=== PATIENT | female | born 1990 | race Native Hawaiian/Other Pacific Islander ===

== ENCOUNTER 2018-02-27 08:47 | Outpatient (CLI) | payer OTHER | END 2018-02-27 22:04 | disposition home or self-care (01) | LOC: LABW 08:47 | DX: R10.13 Epigastric pain (principal) | CPT/HCPCS: 36415; 82150; 83690; 86677 ==

== ENCOUNTER 2018-03-06 11:49 | Outpatient (CLI) | payer OTHER | END 2018-03-06 23:32 | disposition home or self-care (01) | LOC: US 11:49 | DX: R10.13 Epigastric pain (principal) ==

== ENCOUNTER 2018-04-30 10:36 | Observation (INO) | payer OTHER ==
[~2018-04-30] VITALS: Ht 167.6 cm; Wt 94.9 kg
[2018-04-30 10:42] VITALS: BP 125/92; TEMP 99.7
[2018-04-30] MEDS ORDERED: RANI150T78 PO (11:24)
[2018-04-30 12:06] LABS: PLATELET COUNT 107 K/uL (152-353)
[2018-04-30 12:14] LABS: POTASSIUM 3.5 mmol/L (3.6-5.2); SODIUM 139 mmol/L (136-145)
[2018-04-30 12:29] LABS: PARTIAL THROMBOPLASTIN TIME 18.3 SECONDS (24.5-33.6)
[2018-04-30 17:31] VITALS: BP 126/73; TEMP 97.8; Ht 167.6 cm; Wt 94.9 kg
[2018-04-30 20:00] VITALS: BP 139/83; TEMP 98.3
[2018-05-01 00:49] VITALS: BP 101/54; TEMP 98.7
[2018-05-01 04:00] VITALS: BP 122/69; TEMP 98.2
[2018-05-01 08:00] VITALS: BP 117/67; TEMP 97.8
== END 2018-05-01 09:15 | disposition home or self-care (01) ==
LOC: ED 10:36 → MED/SURG 13:07
PROVIDERS: ADMIT Internal Medicine
DX: R07.89 Other chest pain (principal); K21.9 Gastro-esophageal reflux disease without esophagitis; E03.8 Other specified hypothyroidism; E66.8 Other obesity; E87.6 Hypokalemia; R10.13 Epigastric pain
CPT/HCPCS: 36415; 80053; 82550; 84484; 85027; 85379; 85610; 85730; 93005; 96372; 96374; 99220; 99283; G0378; J1650; J2405; Q9963

== ENCOUNTER 2018-05-16 07:40 | Emergency (ER) | payer OTHER ==
[~2018-05-16] VITALS: Ht 167.6 cm; Wt 94.8 kg
[~2018-05-16 07:40] MED LIST: RANI150T78 PO
[2018-05-16 07:45] VITALS: TEMP 99.3
[2018-05-16] MEDS ORDERED: NEXIUM20 M1 PO (07:56)
[2018-05-16 09:04] LABS: PLATELET COUNT 296 K/uL (152-353)
[2018-05-16 09:07] LABS: POTASSIUM 3.2 mmol/L (3.6-5.2)
[2018-05-16 12:08] VITALS: BP 133/84
== END 2018-05-16 12:14 | disposition home or self-care (01) ==
LOC: ED 07:40
PROVIDERS: Family Medicine
DX: K21.9 Gastro-esophageal reflux disease without esophagitis (principal); N39.0 Urinary tract infection, site not specified
CPT/HCPCS: 36415; 80053; 81000; 85027; 87086; 87088; 96374; 99284; J2405; Q9963

== ENCOUNTER 2018-05-28 11:22 | Day surgery (SDC) | payer OTHER ==
[~2018-05-28 11:22] MED LIST changes: +NEXIUM20 M1 PO
== END 2018-05-28 15:20 | disposition home or self-care (01) ==
LOC: OR 11:22
PROC: 0DB28ZX Excision of Middle Esophagus, Via Natural or Artificial Opening Endoscopic, Diagnostic (ICD-10-PCS; principal; 2018-05-28)
PROC: 0DB18ZX Excision of Upper Esophagus, Via Natural or Artificial Opening Endoscopic, Diagnostic (ICD-10-PCS; 2018-05-28)
PROC: 0DB88ZZ Excision of Small Intestine, Via Natural or Artificial Opening Endoscopic (ICD-10-PCS; 2018-05-28)
PROC: 0DB68ZZ Excision of Stomach, Via Natural or Artificial Opening Endoscopic (ICD-10-PCS; 2018-05-28)
DX: K22.4 Dyskinesia of esophagus (principal); K21.0 Gastro-esophageal reflux disease with esophagitis; K29.50 Unspecified chronic gastritis without bleeding; K31.7 Polyp of stomach and duodenum; R10.13 Epigastric pain
CPT/HCPCS: 81025; J2001; J2250; J2704

== ENCOUNTER 2019-03-02 07:13 | Emergency (ER) | payer OTHER ==
[~2019-03-02] VITALS: Ht 167.6 cm; Wt 99.8 kg
[2019-03-02 08:11] LABS: PLATELET COUNT 263 K/uL (152-353)
[2019-03-02 08:21] LABS: POTASSIUM 4.5 mmol/L (3.6-5.2); SODIUM 140 mmol/L (136-145)
[2019-03-02 09:20] VITALS: BP 124/73; TEMP 98.1
== END 2019-03-02 09:20 | disposition home or self-care (01) ==
LOC: ED 07:13
PROVIDERS: Family Medicine
DX: R07.89 Other chest pain (principal)
CPT/HCPCS: 36415; 80053; 81000; 82550; 84484; 85027; 93005; 99283

== ENCOUNTER 2022-08-02 12:18 | Emergency (ER) | payer OTHER ==
[~2022-08-02] VITALS: Ht 167.6 cm; Wt 103.4 kg
[2022-08-02] MEDS ORDERED: NEXIUM40 M1 PO (12:34)
[2022-08-02 13:18] LABS: PLATELET COUNT 280 K/uL (152-353)
[2022-08-02 13:27] LABS: SODIUM 136 mmol/L (136-145)
[2022-08-02 14:20] VITALS: BP 123/60
[2022-08-02 14:26] VITALS: TEMP 3
== END 2022-08-02 14:27 | disposition home or self-care (01) ==
LOC: ED 12:18
PROVIDERS: Internal Medicine
DX: R00.2 Palpitations (principal)
CPT/HCPCS: 80053; 81002; 84484; 85027; 93005; 99283